=== PATIENT | male | born 1990 | race Caucasian/White ===

== ENCOUNTER 2018-05-23 21:11 | Emergency (ER) | payer SELFPAY, MEDICAID ==
[2018-05-23 23:51] LABS: URINE BLOOD (Dip) POC Negative (NEGATIVE); URINE GLUCOSE (Dip) POC Negative (NEGATIVE); URINE KETONES (Dip) POC Trace (NEGATIVE); URINE LEUKOCYTE EST (Dip) POC Negative (NEGATIVE); URINE NITRITE (Dip) POC Negative (NEGATIVE); URINE TOTAL PROTEIN POC 1+ (NEGATIVE)
[2018-05-23 23:51] LABS: URINE PH (Dip) POC 5.5 (5.0-8.5)
== END 2018-05-24 00:25 | disposition home or self-care (01) ==
LOC: FTE 05-24 00:25 → E/R 21:11
DX: N32.9 Bladder disorder, unspecified (principal)
CPT/HCPCS: 76705; 81003; 99284-25